=== PATIENT | female | born 1990 | race Caucasian/White ===

== ENCOUNTER 2016-05-01 13:50 | Emergency (ER) | payer MEDICAID ==
[2016-05-01 14:10] VITALS: BP 118/78
--- OUTSIDE RECORDS SUMMARY | 2016-05-01 16:43 | XMS REPORT | Continuity of Care Document ---
:1990 Author Organization [facility] ([facility]) Address [place] [address] Phone [phone] Care Team Providers Name Role Phone Provider, No-Primary Care Primary Care Provider Unavailable Source Comments This disclosure is being made pursuant to the Care Everywhere program, applicable federal and state laws, and may not contain all informaitonavailable regarding this patient.[facility] ([facility]) Active Allergies and Adverse Reactions Allergen Noted Date Severity Reactions Comments Penicillin G 01/25/2012 Rash Vancomycin In Dextrose 5 % 08/18/2014 Flushing Likely Red Man Syndrome Current Medications Prescription Sig. Disp. Refills Start Date End Date Status aripiprazole (ABILIFY) Take 1 Tab by mouth 30 Tab 11 09/29/2013 Active 15 mg tablet at bedtime. Indications: MANIC BIPOLAR DISORDER multivitamin Take 1 Tab by mouth Active with minerals 27-0.8 mg daily. tablet oseltamivir (TAMIFLU) Take 1 Cap by mouth 10 Cap 0 03/11/2014 Active 75 mg capsule 2 times daily. Indications: INFLUENZA dicyclomine 10 mg Take 1 Cap by mouth 15 Cap 1 03/11/2014 Active capsule 3 times daily as needed. Indications: nausea Active Problems Problem Noted Date Supervision of other normal 08/18/2014 uterine contractions, antepartum 08/18/2014 Allergy to penicillin G 08/18/2014 Resolved Problems Problem Noted Date Resolved Date test-positive 02/08/2012 10/01/2013 Social History Tobacco Use Types Packs/Day Years Used Date Former Smoker Smokeless Tobacco: Never Used Alcohol Use Drinks/Week oz/Week Comments Yes 0 Standard drinks or equivalent 0.0 5-14 beers daily/sometimes whisky Last Filed Vital Signs Vital Sign Reading Time Taken Blood Pressure 114/66 08/23/2014 7:54 AM CDT Pulse 76 08/23/2014 7:54 AM CDT Temperature 35.7 C (96.3 F) 08/23/2014 7:54 AM CDT Respiratory Rate 20 08/23/2014 7:54 AM CDT Height 1.6 m (5' 3") 08/18/2014 1:47 PM CDT Weight 75.751 kg (167 lb) 08/18/2014 1:47 PM CDT Body Mass Index 29.59 08/18/2014 1:47 PM CDT Oxygen Saturation 98% 08/23/2014 7:54 AM CDT Plan of Care Health Maintenance Due Date Last Done Comments Hepatitis B Vaccine (1 of 3 - Primary Series) 1990 HPV Vaccine (1 of 3 - Female/Unknown 3 Dose Series) 05/27/2003 Tdap Vaccine 05/27/2003 Cervical Cancer Screening 2010 Lipid Disorder Screening 2010 MMR Vaccine 2010 Td Vaccine 2010 Varicella Vaccine (1 of 2 - Adult - No Evidence of 2010 Immunity) Influenza Vaccine: Seasonal (#1) 10/03/2015 Results from Last 3 Months Not on file
== END 2016-05-01 16:57 | disposition left against medical advice (07) ==
LOC: ER 13:50
DX: Z53.21 Procedure and treatment not carried out due to patient leaving prior to being seen by health care provider (principal)

== ENCOUNTER 2016-05-03 15:29 | Emergency (ER) | payer MEDICAID ==
[2016-05-03 16:15] VITALS: BP 114/71
--- OUTSIDE RECORDS SUMMARY | 2016-05-03 16:18 | XMS REPORT | Continuity of Care Document ---
:1990 Author Organization [facility] ([facility]) Address [place] [address] Phone [phone] Care Team Providers Name Role Phone Provider, No-Primary Care Primary Care Provider Unavailable Source Comments This disclosure is being made pursuant to the Care Everywhere program, applicable federal and state laws, and may not contain all informaitonavailable regarding this patient.[facility] ([facility]) Active Allergies and Adverse Reactions Allergen Noted [...]
[2016-05-03] MEDS ORDERED: MECLIZINE HCL 25 MG TABLET PO ONE (16:29)
--- NOTE | 2016-05-03 16:31 | ERNOTE ---
Dizziness ER Record Date of Service: 05/03/16 Presenting Symptoms: dizziness Time Seen by Provider: 05/03/16 16:01 Source: patient Exam Limitations: no limitations Immunizations: IMMUNIZATION HX Immunizations Up to Date Yes History of Influenza Vaccine No Hx Pneumococcal Vaccination No Allergies/Adverse Reactions: Allergies Allergy/AdvReac Type Severity Reaction Status Date / Time Penicillins Allergy Hives Verified 05/03/16 16:01 vancomycin Allergy Itching Verified 05/03/16 16:01 Home Medications: HOME MEDICATIONS Ibuprofen [Motrin] 800 mg PO TID PRN #30 tablet 11/04/15 [Last Taken Unknown] Meclizine HCl [Antivert] 25 mg PO QID PRN #40 tab 05/03/16 [Last Taken Unknown] - History of Present Illness Narrative: Pt. comes in with c/o dizziness for two months that is increasing in frequency and severity. Pt. denies any SOB, CP, NVD, ear pain, recent illness, but does state that the room is spinning when she lays flat and position changes worsen the symptoms. Pt. denies any prehospital treatment or alleviating factors. Review of Systems - Review of Systems Constitutional: Present: no symptoms reported. Absent: recent illness, fever, chills, weakness, fatigue, malaise EYE: Present: no symptoms reported ENT: Present: no symptoms reported Respiratory: Present: no symptoms reported. Absent: shortness of breath, cough , wheezing Cardiology: Present: no symptoms reported. Absent: chest pain, palpitations, edema Gastrointestinal/Abdominal: Present: no symptoms reported. Absent: nausea, vomiting, diarrhea Genitourinary: Present: no symptoms reported Musculoskeletal: Present: no symptoms reported. Absent: back pain, joint pain Skin: Present: no symptoms reported Neurological: Present: dizziness/light-headedness. Absent: headache, numbness, tingling All Other Systems: All systems neg except as marked - Patient's Past Medical History Patient History - Medical: Anemia, Anxiety, Bipolar, Depression Patient History - Cardiac/Respiratory: No pertinent hx Patient History - Cancer: No Hx of Cancer Patient History - Surgical Procedures: No surgical history Patient History - Other: None LMP (females 10-50): other LMP (Calendar): 07/20/15 - Family History Father Family History - Cardiac/Respiratory: Myocardial Infarction - Social History Living Situations: home Abuse History: No History of abuse Psych History: Hx of Depression, Hx of Bipolar Disorder Alcohol Use: none Drug Use: none - Immunizations Immunizations Up to Date: Yes Hx Pneumococcal Vaccination: No History of Influenza Vaccine: No Physical Exam - Physical Exam General Appearance: Present: wd/wn, alert, no apparent distress Eye Exam: Normal inspection: bilateral, PERRL: bilateral, EOMI: bilateral Ears, Nose, Throat: Present: sinus pain/drainage - frontal, normal pharynx Neck: Present: normal inspection, nontender. Absent: lymphadenopathy (R), lymphadenopathy (L) Respiratory: Present: no respiratory distress, normal breath sounds, no accessory muscle use, chest nontender, lungs clear Cardiovascular/Chest: Present: regular rate, rhythm, no murmur, normal peripheral pulses. Absent: gallop/S3, friction rub Gastrointestinal/Abdominal: Present: normal bowel sounds, nontender, nondistended, soft, no organomegaly Back Exam: Present: normal inspection, normal range of motion, no CVA tenderness , no vertebral tenderness Extremity Exam: Present: normal inspection, normal range of motion, no edema Neurological Exam: Present: alert, oriented, normal mood/affect, no motor/ sensory deficits Skin Exam: Present: normal color, warm/dry. Absent: pallor, skin rash ED Progress - Date and Time Seen: Date and Time: 05/03/16 17:52 Pt. request to leave before test complete. I am ok with this and will call pt. if positive. - Results and Orders Patient's Lab Results:: I have reviewed the patient's lab results. - Vital Signs Patient's Vital Signs:: I have reviewed the patient's vital signs. Vital Signs: Vital Signs 05/03/16 05/03/16 15:56 16:14 Temperature 36.8 C Pulse Rate 82 82 Respiratory 16 Rate Blood Pressure 127/60 114/71 O2 Sat by Pulse 99 Oximetry - EKG EKG: NSR EKG read: Interp. by me - CT/Ultrasound CT/Ultrasound Narrative: CT head without acute abnormalities. - Progress/Reassessment Chief Complaint: Dizziness Progress:: Improved Departure Clinical Impression: Vertigo - Departure Disposition: Home self-care Condition: Good Instructions: Vertigo, [id number] Additional Instructions: Please follow up with primary provider of your choice in 2-3 days. We will call you with appointment fot physical therapy. Prescriptions: Meclizine HCl [Antivert] 25 mg PO QID PRN #40 tab PRN Reason: DIZZINESS
[2016-05-03] MEDS ORDERED: MECLIZINE HCL 25 MG TABLET ONE (16:35)
[2016-05-03 17:11] LABS: Urine Bilirubin Negative (NEGATIVE); Urine Blood Negative /ul (NEGATIVE); Urine Ketone Negative (NEGATIVE); Urine Nitrite Negative (NEGATIVE); Urine Protein Negative (NEGATIVE); Urine Specific Gravity >=1.030 SP.GR. (1.005-1.010); Urine Urobilinogen Normal (NORMAL)
[2016-05-03 17:11] LABS: Hematocrit 39.6 % (37.0-47.0); Mean Corpuscular Hemoglobin 28.9 pg (27-31); Mean Corpuscular Hgb Conc 32.8 g/dl (32-36); Mean Platelet Volume 9.8 fl (6.0-9.5); Neutrophil # 4.2 K/mm3 (1.3-6.0); Neutrophil % 57.8 % (42-75.0); Platelet Count 275 K/mm3 (150-450); Red Cell Distribution Width 13.4 % (11.5-14.0); White Blood Count 7.3 K/mm3 (4.0-10.5)
[2016-05-03 17:21] LABS: Anion Gap 14.4 mmol/L (6.8-13.8); BUN/Creatinine Ratio 9.4 (9.0-21.6); Bilirubin, Total 0.4 mg/dL (0.0-1.1); Ca. Corrected For Albumin 8.7 mg/dL (8.4-10.2); Carbon Dioxide 26.8 mmol/L (24-32.6); Potassium 3.2 mmol/L (3.4-4.6)
[2016-05-03 17:37] LABS: Urine Appearance Clear; Urine Color Yellow
[2016-05-03 17:38] LABS: Urine Bacteria None Seen; Urine RBC None Seen /hpf (0-5)
== END 2016-05-03 17:53 | disposition home or self-care (01) ==
LOC: ER 15:29
DX: R42 Dizziness and giddiness (principal)

== ENCOUNTER 2016-05-20 10:09 | Emergency (ER) | payer MEDICAID ==
[2016-05-20 10:20] VITALS: BP 136/85
--- NOTE | 2016-05-20 10:27 | ERNOTE ---
Lower Extremity HPI - General Lower Extremities Pain: foot: right, ankle: right Time Seen by Provider: 05/20/16 10:12 Source: patient Exam Limitations: no limitations - Immun/Allergies/Home Medications Immunizations: IMMUNIZATION HX Immunizations Up to Date Yes History of Influenza Vaccine No Hx Pneumococcal Vaccination No Allergies/Adverse Reactions: Allergies Allergy/AdvReac Type Severity Reaction Status Date / Time Penicillins Allergy Hives Verified 05/20/16 10:19 vancomycin Allergy Itching Verified 05/20/16 10:19 Home Medications: HOME MEDICATIONS Methylprednisolone Acetate [Depo-Medrol] 20 mg IJ Q90D 05/20/16 [Last Taken Unknown] - History of Present Illness Narrative: Patient missed a step and twisted her ankle as she fell. She has pain in her ankle and foot, denies any other injury, has been able to bear weight but walks with a limp, took ibuprofen about one hour ago Date (Duration): 05/19/16 Time (Timing): 23:00 Occurred: yesterday Method of Injury: Reports: twisted Loss of Consciousness: Reports: no loss of consciousness Modifying Factors - (Worsens): Reports: other - weight bearing Other Injuries: Reports: none Subsequent Symptoms: Denies: sensory loss Prior Treament: Reports: similar symptoms before Review of Systems - Review of Systems Constitutional: Absent: recent illness, fever ENT: Present: nose congestion Respiratory: Absent: shortness of breath Cardiology: Absent: chest pain Gastrointestinal/Abdominal: Absent: nausea, vomiting Genitourinary: Present: no symptoms reported Musculoskeletal: Present: See HPI Skin: Absent: rash Neurological: Absent: headache - Patient's Past Medical History Patient History - Medical: Anemia, Anxiety, Bipolar, Depression, Migraines Patient History - Cardiac/Respiratory: No pertinent hx Patient History - Cancer: No Hx of Cancer Patient History - Surgical Procedures: No surgical history Patient History - Other: None LMP (females 10-50): 3 months LMP (Calendar): 07/20/15 - Family History Father Family History - Cardiac/Respiratory: Myocardial Infarction - Social History Living Situations: home Abuse History: No History of abuse Psych History: Hx of Depression, Hx of Bipolar Disorder Smoking Status: Never smoker Alcohol Use: occasionally Drug Use: none - Immunizations Immunizations Up to Date: Yes Hx Pneumococcal Vaccination: No History of Influenza Vaccine: No Physical Exam - Physical Exam General Appearance: Present: wd/wn, alert, no apparent distress Respiratory: Present: no respiratory distress Peripheral Pulses: N=norm/S=strong/W=weak/B=bound/A=absent: Dorsalis-pedis (R): Normal Extremity Exam: Present: normal except - - tenderness and swelling over right lateral malleolus and lateral foot over base of 4th and 5th metacarpal, normal range of motion Neurological Exam: Present: alert, oriented, normal mood/affect, no motor/ sensory deficits Skin Exam: Present: normal color, warm/dry, other - intact ED Progress - Results and Orders Patient's Lab Results:: I have reviewed the patient's lab results. - Vital Signs Vital Signs: Vital Signs 05/20/16 10:13 Temperature 36.7 C Pulse Rate 80 Respiratory 16 Rate Blood Pressure 136/85 O2 Sat by Pulse 100 Oximetry - X-Ray X-Ray #1 X-Ray: ankle - no bony injury Interpretation: Interp. by me X-Ray #2 X-Ray: foot - proximal 5th metacarpal avulsion fracture Interpretation: Interp. by me - Progress/Reassessment Progress Note-Subjective: 05/20/16 10:[address] Zaman, treat with either cam boot(weight bearing) or splint (non weight bearing) in ER and boot later in ortho clinic 05/20/16 10:58 discussed plan with patient, would like cam boot now Departure Clinical Impression: Metatarsal bone fracture Qualifiers: Encounter type: initial encounter Metatarsal bone: fifth Fracture type: closed Fracture alignment: nondisplaced Laterality: right Qualified Code(s): S92.354A - Nondisplaced fracture of fifth metatarsal bone, right foot, initial encounter for closed fracture Right ankle sprain Qualifiers: Encounter type: initial encounter Involved ligament of ankle: unspecified ligament Qualified Code(s): S93.401A - Sprain of unspecified ligament of right ankle, initial encounter - Departure Disposition: Home self-care Condition: Good Instructions: Avulsion Fracture of the Foot, Form - Excuse from Work, School, or Physical Activity Additional Instructions: call the orthopedic clinic on Saturday for a follow up appointment Referrals: Clarke Zaman MD [Staff Physician] -
--- OUTSIDE RECORDS SUMMARY | 2016-05-20 10:32 | XMS REPORT | Continuity of Care Document ---
:1990 Author Organization [facility] ([facility]) Address [place] [address] Phone [phone] Care Team Providers Name Role Phone Provider, No-Primary Care Primary Care Provider Unavailable Source Comments This disclosure is being made pursuant to the Care Everywhere program, applicable federal and state laws, and may not contain all informaitonavailable regarding this patient.[facility] ([facility]) Active Allergies and Adverse Reactions Allergen [...]
== END 2016-05-20 11:06 | disposition home or self-care (01) ==
LOC: ER 10:09
PROC: 2W3SX1Z Immobilization of Right Foot using Splint (ICD-10-PCS; principal; 2016-05-20)
DX: S92.354A Nondisplaced fracture of fifth metatarsal bone, right foot, initial encounter for closed fracture (principal); S93.401A Sprain of unspecified ligament of right ankle, initial encounter; W17.89XA Other fall from one level to another, initial encounter; Y93.9 Activity, unspecified; Y92.9 Unspecified place or not applicable; Y99.9 Unspecified external cause status

== ENCOUNTER 2016-06-26 21:21 | Emergency (ER) | payer MEDICAID ==
[2016-06-26 21:45] VITALS: BP 119/68
[2016-06-26] MEDS ORDERED: CYCLOBENZAPRINE HCL 10 MG TABLET PO ONE (22:29)
[2016-06-26] MEDS ORDERED: CYCLOBENZAPRINE HCL 10 MG TABLET ONE (22:32)
--- NOTE | 2016-06-26 22:32 | ERNOTE ---
Head Injury HPI - General Injury to: other - neck Time Seen by Provider: 06/26/16 22:12 Source: patient Exam Limitations: no limitations - Immun/Allergies/Home Medications Immunization: IMMUNIZATION HX Immunizations Up to Date Yes History of Influenza Vaccine No Hx Pneumococcal Vaccination No Allergies/Adverse Reactions: Allergies Allergy/AdvReac Type Severity Reaction Status Date / Time Penicillins Allergy Hives Verified 05/20/16 10:19 vancomycin Allergy Itching Verified 05/20/16 10:19 Home Medications: HOME MEDICATIONS Cyclobenzaprine HCl [Flexeril] 10 mg PO TID PRN #20 tab 06/26/16 [Last Taken Unknown] - History of Present Illness Narrative: Pt was talking on the phone, holding it on her right shoulder with her head leaned to the right for an extended period this morning. As the day went on her neck became more and more stiff leaning toward the position she had been in earlier Occurred: this afternoon Location Occurred: work Severity: moderate Method of Injury: Reports: other - position for long period Associated Symptoms: Reports: denies symptoms Review of Systems - Review of Systems Constitutional: Present: no symptoms reported EYE: Present: no symptoms reported ENT: Present: no symptoms reported Respiratory: Present: other - increased pain with deep breath Cardiology: Present: no symptoms reported Gastrointestinal/Abdominal: Present: no symptoms reported Genitourinary: Present: no symptoms reported Musculoskeletal: Present: See HPI Neurological: Absent: weakness, numbness, tingling Endocrine: Present: no symptoms reported Hematologic/Lymphatic: Present: no symptoms reported Psych: Present: no symptoms reported - Patient's Past Medical History Patient History - Medical: Anemia, Anxiety, Bipolar, Depression, Migraines Patient History - Cardiac/Respiratory: No pertinent hx Patient History - Cancer: No Hx of Cancer Patient History - Surgical Procedures: No surgical history Patient History - Other: None LMP (females 10-50): Nov or Dec on control pill LMP (Calendar): 07/20/15 - Family History Father Family History - Cardiac/Respiratory: Myocardial Infarction - Social History Living Situations: significant other Abuse History: No History of abuse Psych History: Hx of Depression, Hx of Bipolar Disorder Smoking Status: Never smoker Alcohol Use: occasionally Drug Use: none - Immunizations Immunizations Up to Date: Yes Hx Pneumococcal Vaccination: No History of Influenza Vaccine: No Physical Exam - Physical Exam General Appearance: Present: wd/wn, alert, mild distress Neck: Present: limited range of motion - unable to turn past midline to the left. Unable to sidebend to the left, pain with forward nodding head. No nuchal rigidity Respiratory: Present: no respiratory distress Back Exam: Present: no vertebral tenderness, muscle spasm - in the upper trapezius on the left Extremity Exam: Present: normal inspection, non-tender, decreased range of motion - of the left arm due to pain in the trapezius Neurological Exam: Present: alert, oriented, normal mood/affect, no motor/ sensory deficits Skin Exam: Present: normal color, warm/dry ED Progress - Vital Signs Vital Signs: Vital Signs 06/26/16 21:39 Temperature 37.1 C Pulse Rate 72 Respiratory 14 Rate Blood Pressure 119/68 O2 Sat by Pulse 100 Oximetry - Progress/Reassessment Chief Complaint: Neck Pain/Injury Departure Clinical Impression: Torticollis, spasmodic - Departure Disposition: Home self-care Condition: Good Instructions: Heat Therapy, Acute Torticollis Prescriptions: Cyclobenzaprine HCl [Flexeril] 10 mg PO TID PRN #20 tab PRN Reason: MUSCLE SPASMS
--- OUTSIDE RECORDS SUMMARY | 2016-06-26 22:36 | XMS REPORT | Continuity of Care Document ---
:1990 Author Organization [facility] ([facility]) Address [place] [address] Phone [phone] Care Team Providers Name Role Phone Provider, No-Primary Care Primary Care Provider Unavailable Source Comments This disclosure is being made pursuant to the Care Everywhere program, applicable federal and state laws, and may not contain all informaitonavailable regarding this patient.[facility] ([facility]) Active Allergies and Adverse Reactions [...]
== END 2016-06-26 22:39 | disposition home or self-care (01) ==
LOC: ER 21:21
DX: M43.6 Torticollis (principal)